=== PATIENT | female | born 1960 | race Caucasian/White ===

== ENCOUNTER 2017-10-25 05:41 | Day surgery (SDC) | payer OTHER ==
[~2017-10-25] VITALS: Ht 162.6 cm; Wt 60.5 kg
[~2017-10-25 05:41] MED LIST: CYCL7.5T9 PO; LORA-407; RABE20TA9; RANI300T3
[2017-10-25] MEDS ORDERED: CYCLOBENZAPRINE (06:55)
[2017-10-25] MEDS ORDERED: PANTOPRAZOLE (06:55)
[2017-10-25 07:04] VITALS: BP 132/70; PULSE 63; RESP 15
[2017-10-25] MEDS ORDERED: MIDAZOLAM 1 MG/ML 2 ML INJ ONE ×2 (07:49)
[2017-10-25] MEDS ORDERED: FENTAnyl 50 MCG/ML VIAL ONE (07:49)
--- NOTE | 2017-10-25 07:51 | OPPN ---
Date/Time of Note Date/Time of Note DATE: 10/25/17 TIME: 07:50 Operative Report Preoperative Diagnosis Abdominal pain Chronic heartburn Postoperative Diagnosis Hiatal hernia Gastroesophageal reflux disease Gastritis with erosions Multiple small gastric polyps Operation/Procedure Performed Esophagogastroduodenoscopy and biopsy Surgeon see signature line clinical research assistant None Anesthesia: moderate sedation Estimated blood loss: none Transfusion Required none Specimen Gastric mucosal biopsy Grafts/Implants none Complications none TRISTAN MAGANA MD Oct 25, 2017 07:51
[2017-10-25 08:11] VITALS: BP 98/58; PULSE 68; RESP 16
--- NOTE | 2017-10-26 06:29 | GILP ---
DATE OF PROCEDURE: NAME OF PROCEDURES: Esophagogastroduodenoscopy and biopsy. SURGEON: Tristan Meyer MD. PREOPERATIVE DIAGNOSES: 1. Abdominal pain. 2. Chronic heartburn. POSTOPERATIVE DIAGNOSES: 1. Small hiatal hernia and gastroesophageal reflux disease. 2. Gastritis with erosions. 3. Multiple small gastric polyps. 4. Gastric mucosal biopsies were taken for Helicobacter pylori test. INDICATION FOR THE PROCEDURE: Ms. Zeenat Trejo is a 57-year-old female patient who had upper abdomin al pain and chronic heartburn, not responding to therapy. The patient was scheduled for endoscopic examination for further evaluation. The procedure and possible complications were well explained to the patient. The patient understood and consented to the procedure. DESCRIPTION OF PROCEDURE: Under the influence of fentanyl and Versed, the gastroscope was carefully introduced into the esophagus and under direct vision, it was advanced to the stomach and through t he pylorus into the duodenal bulb and descending duodenum. FINDINGS: ESOPHAGUS: The patient had small hiatal hernia and gastroesophageal reflux disease. STOMACH: The patient had gastritis with erosions. Gastric mucosal biopsies were taken for H. pylor i test. The patient was noted to have multiple small gastric polyps. DUODENUM: Normal. She tolerated the procedure very well and there was no complication from the procedure. At the end of the procedures, she was awake with stable vital signs and she was discharged home to the care of her family. IMPRESSION: Please see postoperative diagnoses. PLAN: 1. Continue pantoprazole. 2. Add Zantac 300 mg p.o. at bedtime. 3. Await H. pylori test report. Dictated By: TRISTAN GARCIA/BRI Conf#: [id number] DID#: [id number]
== END 2017-10-25 09:46 | disposition home or self-care (01) ==
LOC: GIL 05:41 → MERGE 05:41 → GIL 05:44
PROVIDERS: ATTEND Internal Medicine Gastroenterology
DX: K44.9 Diaphragmatic hernia without obstruction or gangrene (principal); K21.9 Gastro-esophageal reflux disease without esophagitis; K29.70 Gastritis, unspecified, without bleeding; K31.7 Polyp of stomach and duodenum
CPT/HCPCS: 43239; 87081; J2250; J3010

== ENCOUNTER 2019-02-13 08:50 | Day surgery (SDC) | payer OTHER ==
[~2019-02-13] VITALS: Ht 160 cm; Wt 56.2 kg
[~2019-02-13 08:50] MED LIST changes: +CYCLOBENZAPRINE; +PANTOPRAZOLE; +RABE20TA18; -RABE20TA9
[2019-02-13 09:18] VITALS: Ht 160 cm; Wt 56.2 kg
--- NOTE | 2019-02-13 09:21 | PREAC ---
Date/Time of Note Date/Time of Note DATE: 02/13/19 TIME: 09:20 Anesthesia Eval and Record Evaluation Time Pre-Procedure Interview DATE: 02/13/19 TIME: 09:20 Age 58 Sex female NPO: 8 hrs Preoperative diagnosis ABDOMINAL PAIN Planned procedure EGD AND COLON Past Medical History Past Medical History: None Surgery & Anesthesia Issues No known issue Meds Anticoagulation: No Beta Jason within 24 hr: No Reason Beta Jason not given: Pt. not on B-Jason Reported Medications [Cyclobenzaprine] No Conflict Check 10/25/17 [Pantoprazole] No Conflict Check 10/25/17 Cyclobenzaprine Hcl (Cyclobenzaprine) 7.5 Mg Tablet, 10 MG PO, TAB 02/12/15 Ranitidine Hcl* (Zantac*) 300 Mg Tab 09/25/10 Loratadine (Claritin) 10 Mg Tablet 08/14/10 Rabeprazole Sodium* (Aciphex*) 20 Mg Tablet. 08/14/10 Meds reviewed: Yes Allergies Coded Allergies: No Known Drug Allergies (Verified Allergy, Unknown, 12/29/12) Uncoded Allergies: NKDA (Allergy, Mild, 08/14/10) Allergies Reviewed: Yes Labs/Studies Labs Reviewed: Reviewed by anesthesiologist test: N/A Pre-procedure Exam Airway: Adequate mouth opening, Adequate thyromental dist Mallampati: Mallampati I Teeth: Normal Lung: Normal Heart: Normal ASA Physical Status ASA physical status: 2 Emergency: None Planned Anesthetic General/MAC: MAC Planned Pain Management Parenteral pain med Pre-operative Attestations Prior to commencing anesthesia and surgery, the patient was re-evaluated, there was verification of: *The patient's identity *The results of appropriate recent lab work and preoperative vital signs *The above evaluation not changing prior to induction *Anesthetic plan, risk benefits, alternative and complications discussed with patient/family; questions answered; patient/family understands, accepts and wishes to proceed. PRAVEEN ALVARADO Feb 13, 2019 09:21
[2019-02-13] MEDS ORDERED: LIDOCAINE 2% (SDV) 5 ML INJ ONE (09:23)
[2019-02-13] MEDS ORDERED: PROPOFOL 60 ML ONE (09:23)
[2019-02-13] MEDS ORDERED: IBUPROFEN (09:26)
[2019-02-13] MEDS ORDERED: LINZESS (09:26)
[2019-02-13] MEDS ORDERED: OMEPRAZOLE (09:26)
[2019-02-13] MEDS ORDERED: LABETALOL HCL 20MG INJ IV PRN (09:30)
[2019-02-13] MEDS ORDERED: FENTAnyl 50 MCG/ML VIAL IV PRN (09:30)
[2019-02-13] MEDS ORDERED: EPHEDrine SULFATE 50 MG/5 ML SYG IV PRN (09:30)
[2019-02-13] MEDS ORDERED: hydrALAzine 20 MG INJ IV PRN (09:30)
[2019-02-13] MEDS ORDERED: ONDANSETRON 4 MG INJ IV PRN (09:30)
[2019-02-13 09:32] VITALS: BP 130/76; PULSE 105; RESP 23
--- NOTE | 2019-02-13 10:16 | PAC ---
Date/Time of Note Date/Time of Note DATE: 02/13/19 TIME: 10:16 Post-Anesthesia Notes Post-Anesthesia Note Last documented vital signs Vital Signs Date Temp Pulse Resp B/P (MAP) Pulse Ox O2 O2 Flow FiO2 Time Delivery Rate 02/13/19 98.4 105 23 130/76 100 Room Air 1016 (94) Activity: WNL Respiratory function: WNL Cardiovascular function: WNL Mental status: Baseline Pain reasonably controlled: Yes Hydration appropriate: Yes Nausea/Vomiting absent: Yes PRAVEEN ALVARADO Feb 13, 2019 10:16
== END 2019-02-13 13:31 | disposition home or self-care (01) ==
LOC: GIL 08:50
PROVIDERS: ATTEND Internal Medicine Gastroenterology
DX: R19.4 Change in bowel habit (principal); K64.8 Other hemorrhoids; K21.9 Gastro-esophageal reflux disease without esophagitis; K29.60 Other gastritis without bleeding
CPT/HCPCS: 88305